=== PATIENT | female | born 2005 | race African-American/Black ===

== ENCOUNTER 2024-12-30 10:59 | Emergency (ER) | payer MEDICAID, SELFPAY ==
[2024-12-30 11:15] VITALS: BP 131/84; PULSE 61; RESP 18; TEMP 36.3; O2SAT 100
--- OUTSIDE RECORDS SUMMARY | 2024-12-30 12:10 | XMS_ITS | Clinical Summary ---
Author Organization [facility] Address [address] [place] [address] Phone Care Team Providers Care Paint Booth Operator Name Role Phone Unavailable Primary Care Provider Unavailabl e Allergies No known active allergies Medications ondansetron (ZOFRAN ODT) 4 mg Tablet, Rapid Dissolve Dissolve 1 Tablet (4 mg) on top of tongue and swallow with saliva every 8 hours as needed for Nausea 30 Tablet 07/01/2023 7:34 PM DEPUTY COUNTY CLERK 4 Active ipratropium bromide (ATROVENT) 42 mcg (0.06 %) [place], Non-Aerosol Administer 2 Sprays in each nostril 2 times daily with meals. 15 mL 07/01/2023 7:34 PM DEPUTY COUNTY CLERK 4 Active ibuprofen (MOTRIN) 600 mg tablet Take 1 Tablet (600 mg) by mouth every 6 hours as needed for Pain. 30 Tablet 07/01/2023 7:34 PM DEPUTY COUNTY CLERK 4 Active cyclobenzaprine (FLEXERIL) 10 mg tablet Take 1 Tablet (10 mg) by mouth 3 times daily as needed for Spasm. 30 Tablet 07/01/2023 7:34 PM DEPUTY COUNTY CLERK 4 Active acetaminophen (TYLENOL) 500 mg tablet Take 2 Tablets (1,000 mg) by mouth every 6 hours as needed for Pain. 40 Tablet 07/01/2023 7:34 PM DEPUTY COUNTY CLERK 4 Active Social History Tobacco Use Types Packs/Day Years Used Date Smoking Tobacco: Unknown Tobacco Cessation:Counseling Given: Not Answered Adolescent Education Answer Date Record ed Getting School Help Needed Not on file 12/06 Feeling Safe Answer Date Recorded Are you in a relationship wi th someone who hurts you emotionally and/or physically? No 07/01/2023 Comments Unknown Sex and Gender Information Value Date Recorded Sex Assigned at Not on file Legal Sex Female 6:51 PM DEPUTY COUNTY CLERK Gender Identity Not on file Sexual Orientation Not on file Last Filed Vital Signs Vital Sign Reading Time Taken Comments Blood Pressure 125/71 07/01/2023 6:46 PM DEPUTY COUNTY CLERK Pulse - - Temperature 36.8 C (98.2 F) 07/01/2023 3:38 PM DEPUTY COUNTY CLERK Respiratory Rate 16 07/01/2023 6:46 PM DEPUTY COUNTY CLERK Oxygen Saturation 96% 07/01/2023 6:46 PM DEPUTY COUNTY CLERK Inhaled Oxygen Concentration - - Weight 74.8 kg (165 lb) 07/01/2023 3:38 PM DEPUTY COUNTY CLERK Height 165.1 cm (5' 5) 07/01/2023 3:38 PM DEPUTY COUNTY CLERK Body Mass Index 27.46 07/01/2023 3:38 PM DEPUTY COUNTY CLERK Plan of Treatment Health Maintenance Due Date Last Done Comments CHLAMYDIA SCREENING (ANNUAL) 11-24 YEARS 07/12/2015 HPV VACCINES (1 - 3-dose series) 07/12/2019 HEPATITIS B VACCINES (1 of 3 - 19+ 3-dose series) 06/30 INFLUENZA VACCINE (#1) 2024 DTAP/TDAP/TD VACCINES (2 - Td or Tdap) 04/24/2029 Insurance [employer] [place] RX [facility] [employer] (INTERNAL) [facility]
--- OUTSIDE RECORDS SUMMARY | 2024-12-30 12:10 | XMS_ITS | Clinical Summary ---
Author Organization [facility] Address [address] [place] [address] Care Team Providers Care Jewel Bearing Driller Name Role Phone Haley Sewell NP Primary Care Provider [phone] Allergies No known active allergies Medications ondansetron ODT (ZOFRAN-ODT) 4 mg disintegrating tablet Take 1 tablet (4 mg total) by mouth every 8 (eight) hours as needed for nausea or vomiting 20 tablet 4 Active aluminum-magnesium hydroxide suspension 200-200 mg/5 mL Take 10 mL p.o. 4 times a day-20 minutes before meals and once before bedtime 355 mL 4 Active famotidine (PEPCID) 20 mg tablet Take 1 tablet (20 mg total) by mouth 2 (two) times a day 30 tablet 4 04/05/20 25 Active nitrofurantoin monohydrate (MACROBID) 100 mg capsule Take 1 capsule (100 mg total) by mouth 2 (two) times a day 10 capsule 5 Active phenazopyridine (PYRIDIUM) 200 mg tablet Take 1 tablet (200 mg total) by mouth 3 (three) times a day 6 tablet 5 Active chlorhexidine (PERIDEX) 0.12 % oral rinse Apply 15 mL to the mouth or throat 2 (two) times a day 120 mL 5 Active Encounters Date Type Department Care Team Description 11/07/2024 10:13 PM CDT - 11/07/2024 11:11 PM CDT Emergency [facility] Emergency Department [address] [place] [address] Injury of gingiva, initial encounter (Primary Dx) Discharge Disposition: Discharge to home or self care 10/18/2024 1:54 PM CDT - 10/18/2024 2:30 PM CDT [address] [address] Jil Bright MD Lymphadenopathy (Primary Dx); Sore throat Discharge Disposition: Discharge to home or self care 09/30/2024 4:26 AM CDT - 09/30/2024 5:51 AM CDT [address] [address] Urinary tract infection in female (Primary Dx) Discharge Disposition: Discharge to home or self care from Last 3 Months Social History Tobacco Use Types Packs/Day Years Used Date Smoking Tobacco: Never Assessed Personal Safety Answer Date Recorded Have you ever been in or are you currently in a harmful physical or emotional relationship or is someone making you feel afraid or unsafe? Denies 11/07/2024 Comments No Sex and Gender Information Value Date Recorded Sex Assigned at Not on file Legal Sex Female 2:23 PM QUALITY ASSURANCE NURSE Gender Identity Not on file Sexual Orientation Not on file Last Filed Vital Signs Vital Sign Reading Time Taken Comments Blood Pressure 120/68 11/07/2024 10:01 PM CDT Pulse 74 11/07/2024 10:01 PM CDT Temperature 37.5 C (99.5 F) 11/07/2024 10:01 PM CDT Respiratory Rate 16 11/07/2024 10:0 1 PM CDT Oxygen Saturation 100% 11/07/2024 10: 01 PM CDT Inhaled Oxygen Concentration - - Weight 74.7 kg (164 lb 10.9 oz) 025 10:01 PM CDT Height 165.1 cm (5' 5) 09/30/2024 3:08 AM CDT Body Mass Index 27.4 09/30/2024 3:08 AM CDT Plan of Treatment Health Maintenance Due Date Last Done Comments Depression Screening 2004 Hepatitis C Screening 2004 HPV Vaccines (2 - 2-dose series) 09/11/2019 03/13/2019 Meningococcal B Vaccine (1 of 2 - Standard) 2020 Regular Well Visit/Exam 18-64 2022 Covid-19 Vaccine (3 - season) 2024 11/19/2020, 10/20/2020 Influenza Vaccine (#1) 2024 05/24/2013 DTaP/Tdap/Td Vaccine (6 - Td or Tdap) 04/24/2029 04/24/2019, 12/08/2015, 05/24/2013, Additional history exists Pneumococcal vaccine <65 Aged Out 02/12/2005 No longer eligible based on patient's age to complete this topic Hepatitis B Screening Completed 05/24/2013 , 12/26/2009, 02/12/2005 Varicella Vaccines Completed 05/24/2013, 12/26/2009 Meningococcal Vaccine Aged Out 12/08/2015 No christopher messi eligible based on patient's age to complete this topic Procedures Procedure Name Priority Date/Time Associated Diagnosis Comments STREPTOCOCCUS GROUP A PCR STAT 10/18/2024 1:23 PM CDT INFLUENZA A/B, RSV, AND COVID-19 PCR STAT 10/18/2024 1:23 PM CDT URINALYSIS, MICROSCOPIC ONLY STAT 09/30/2024 3:34 AM CDT URINE CULTURE STAT 09/30/2024 3:34 AM CDT URINALYSIS AND REFLEX TO MICROSCOPIC AND CULTURE STAT 09/30/2024 3:34 AM CDT POCT HCG, URINE Routine 09/30/2024 3:30 AM CDT from Last 3 Months Results * Influenza A/B, RSV, and COVID-19 PCR Nasopharyngeal (10/18/2024 1:23 PM CDT) COVID-19 RNA Negative Negative Influenza A RNA Negative Negative [facility] Influenza B RNA Negative Negative [facility] RSV RNA Negative Negative [facility] Comment: Interpretive data: Testing performed by [facility]. This test is performed using the [employer] Xpert Xpress CoV-2/Flu/RSV plus assay. This is a multiplex, real-time reverse transcriptase PCR assay intended for the qualitative detection of nucleic acid from SARS-CoV-2, influenza A, influenza B, and respiratory syncytial virus. This assay has been cleared by the [place] Food and Drug administration. The performance characteristics have been verified by the [facility]. Results must be considered in the clinical context, and a negative result does not rule out infection. Interpretive Data last revised 2023 Nasopharyngeal 10/18/2024 1: 23 PM CDT 10/18/2024 1:26 PM CDT Narrative [facility] - 10/18/2024 2:08 PM CDT Is the Patient experiencing symptoms consistent with COVID?->Yes Jil Bright MD LAB MICROBIOLOGY - GEN ERAL ORDERABLES Final Result Performing Organization Address [facility] de Phone Number [facility] Department [place] [address] * Streptococcus Group A PCR Throat (10/18/2024 1:23 PM CDT) Strep A DNA Not Detected Not Detected Comment: This test is performed using the [employer] Xpert Group A Streptococcal Assay. This is a qualitative, real-time PCR assay that detects Group A Strep using throat specimens from patients suspected of having streptococcal pharyngitis. This assay does not detect other beta-hemolytic streptococci including Group C or Group G. Group C and G have been associated with pharyngitis and, occasionally, acute nephritis but do not cause rheumatic fever. If suspected, order Throat Culture, Routine. This assay has been cleared by the [place] Food and Drug Administration, and its performance characteristics have been verified by the performing laboratory. Throat 10/18/2024 1:23 PM CDT 10/18/2024 1:26 PM CDT Jil Bright MD LAB MICROBIOLOGY - GEN ERAL ORDERABLES Final Result Performing Organization Address City/[facility]/ZIP Co de Phone Number [facility] [address] [facility] Department [place] [address] * (ABNORMAL) Urinalysis reflex to microscopic and culture Urine (09/30/2024 3:34 AM CDT) Color, ur Yellow Yellow Clarity, ur Cloudy(A) Clear [facility] Specific gravity, ur 1.032(H) 1.003 - 1.030 [facility] pH, urine 6.5 [facility] Comment: Interpretive Data U rine pH is affected by diet, medications, systemic acid-base disturbances, and renal tubular function. pH may affect urinary stone formation. For example, urine pH below 6.0 may help reduce the tendency for calcium phosphate stones and pH greater than 6.0 may reduce the tendency for uric acid stone formation. Source: [facility] Current Interpretive Data was last revised on 2017 Protein, ur ql 1+(A) Negative [facility] Glucose, ur ql Negative Negative [facility] Ketones, ur Trace Negative [facility] Bilirubin, ur Negative Negative [facility] Blood, ur 3+(A) Negative [facility] Urobilinogen, ur 4.0(A) <2.0 mg/dL [facility] Nitrite, ur Positive(A) Negative [facility] Leukocyte esterase, ur 4+(A) Negative [facility] UA reflex comment Reflex to microscopic UA will be performed. [facility] Urine 09/30/2024 3:34 AM CDT 09/30/2024 3:37 AM CDT Mike Jaime DO LAB MICROBIOLOGY - GENERAL ORDERABLES Final Result Performing Organization Address City/State/[facility] Co de Phone Number [facility] [address] [facility] Department [place] [address] * (ABNORMAL) Urinalysis, microscopic only (09/30/2024 3:34 AM CDT) WBC, ur >50(A) 0 - 5 /HPF RBC, ur >50(A) 0 - 2 /HPF [facility] Epithelial cells, squamous, ur 6-10(A) 0 - 5 /HPF [facility] Comment:Suggestive of contam ination. Consider recollection by clean catch. Bacteria, ur 4+(A) [facility] Mucous, ur Present(A) [facility] Culture Reflex Comment Reflex to urine culture will be performed. [facility] Urine 09/30/2024 3:34 AM CDT 09/30/2024 3:37 AM CDT Mike [facility] LAB URINE ORDERABLES Final Result Performing Organization Address [facility] Co de Phone Number [address] [place] [address] * (ABNORMAL) Urine culture Urine (09/30/2024 3:34 AM CDT) Report Final Report: Greater than or equal to 100,000 colonies/mL of Escherichia coli (.) Comment:Testing performed by : [facility], [address] [facility] [address] Organism ESCHERICHIA COLI [facility] Urine 09/30/2024 3:34 AM CDT 09/30/2024 10:12 AM CDT Narrative [facility] - 10/02/2024 1:31 PM CDT Urine culture reflexed based upon urinalysis results. Testing performed by [facility] Microbiology Laboratory ([phone]) Organism Antibiotic Method Susceptibility Escherichia coli Ampicillin INTERPRETATION Susceptible Escherichia coli Cefazolin INTERPRETATION Susceptible Escherichia coli Nitrofurantoin INTERPRETATION Susceptible Escherichia coli Gentamicin INTERPRETATION Susceptible Escherichia coli Trimethoprim with Sulfamethoxazole IN TERPRETATION Susceptible Escherichia coli Meropenem INTERPRETATION Susceptible Escherichia coli Cefepime INTERPRETATION Susceptible Escherichia coli Ciprofloxacin INTERPRETATION Susceptible Escherichia coli Ceftazidime INTERPRETATION Susceptible Escherichia coli Ceftriaxone INTERPRETATION Susceptible Escherichia coli Piperacillin/Tazobactam INTERPRETATIO N Susceptible Escherichia coli Cephalexin INTERPRETATION Susceptible Escherichia coli Cefuroxime-axetil INTERPRETATION Susceptible Escherichia coli Cefdinir INTERPRETATION Susceptible [facility] MICROBIOLOGY - GENERAL ORDERABLES Final Result Performing Organization Address [facility]/ZIP Co de Phone Number [address] [place] [address] * POCT hCG, urine (09/30/2024 3:30 AM CDT) HCG, ur, POC Negative Negative Lot Number [id number] QC Backgroud Clear Acceptable QC Control Line Acceptable Urine 09/30/2024 3:30 AM CDT Mike Joce Jaime DO POINT OF CARE TEST ORDERABL ES Final Result from Last 3 Months Insurance [facility] Care Teams Jewel Bearing Driller Relationship Specialty Start Date End Date Haley Sewell NP [address] [place] [id number] PCP - General 09/30/24
--- NOTE | 2024-12-30 13:47 | ED.GENADULT ---
HPI - General Adult General Chief complaint: Ear Stated complaint: L ear pain/difficulty swallowing Time Seen by Provider: 12/30/24 11:46 History of Present Illness HPI narrative: Patient is a 19-year-old female who presents ER with pain the left ear and left neck. Ongoing over last day. Has not swelling to the anterior left neck pain with swelling have refers to her left ear. Medically with hearing. Patient also reports that 3 days ago she cut the inside of her lip on her braces. She has been cleaning the area with hydrogen peroxide. Has pain with opening her mouth. No difficulty breathing or swallowing. No tongue swelling. No drainage from the wound. It is at the crease of the upper and lower lip. Review of Systems Constitutional: Constitutional: Reports no additional constitutional complaints ENT: Reports system reviewed and no additional complaints, except as documented PMFSH Past Medical History Medical History (Updated 12/30/24 @ 13:52 by Torsten De Anda MD) Healthy female adult Exam Narrative: GENERAL: Well-appearing, well-nourished, and in no acute distress. HEAD: Normocephalic, atraumatic. ENT: Mucous membranes moist. Small cup with separation at the crease of the upper and lower lip on left side without cellulitis or induration. Normal appearing posterior oropharynx. No tongue swelling. TMs normal bilaterally. NECK: Tender left-sided anterior cervical chain lymphadenopathy. CHEST: Clear to auscultation. No respiratory distress. HEART: Regular rate and rhythm. Normal peripheral pulses. EXTREMITIES: Normal range of motion. No edema. NEURO: Alert and oriented x3. PSYCH: Normal mood and affect. Course Course Emergency Course: Discussed appropriate wound care. Appropriate for discharge home. Vital Signs Vital signs: Vital Signs Temperature 97.3 F L 12/30/24 11:15 Pulse Rate 61 12/30/24 11:15 Respiratory Rate 18 12/30/24 11:15 Blood Pressure 131/84 12/30/24 11:15 Pulse Oximetry 100 12/30/24 11:15 Temperature 97.3 F L 12/30/24 11:15 Pulse Rate 61 12/30/24 11:15 Respiratory Rate 18 12/30/24 11:15 Blood Pressure 131/84 12/30/24 11:15 Pulse Oximetry 100 12/30/24 11:15 Medical Decision Making Vital Signs Vital Signs: Vital Signs Temperature 97.3 F L 12/30/24 11:15 Pulse Rate 61 12/30/24 11:15 Respiratory Rate 18 12/30/24 11:15 Blood Pressure 131/84 12/30/24 11:15 Pulse Oximetry 100 12/30/24 11:15 Temperature 97.3 F L 12/30/24 11:15 Pulse Rate 61 12/30/24 11:15 Respiratory Rate 18 12/30/24 11:15 Blood Pressure 131/84 12/30/24 11:15 Pulse Oximetry 100 12/30/24 11:15 Discharge Plan Discharge Clinical Impression: Open lip wound, Lymphadenopathy Patient Disposition: Home Condition: Stable Additional Instructions: Only apply Vaseline to your lip laceration to help with healing. Take ibuprofen as needed for pain. Do not use hydrogen peroxide on your wound. Patient Language: [place] Prescriptions: New ibuprofen 600 mg tablet 600 mg PO TID Qty: 20 0RF Follow-up/Referrals: AGUSTINA AMIN [Other] - 1 Week Stand Alone Forms: Work/School Release IP
== END 2024-12-30 14:02 | disposition home or self-care (01) ==
PROVIDERS: Emergency Provider Emergency Medicine
DX: S01.501A Unspecified open wound of lip, initial encounter (principal); R59.0 Localized enlarged lymph nodes; W45.8XXA Other foreign body or object entering through skin, initial encounter
CPT/HCPCS: 99283